=== PATIENT | female | born 2000 | race Caucasian/White ===

== ENCOUNTER 2021-07-14 13:35 | Inpatient (IN) | payer OTHER ==
[2021-07-14] MEDS ORDERED: Ondansetron PF 4 MG/2 ML Vial ONE (14:11)
[2021-07-14] MEDS ORDERED: INSULIN REGULAR IN 0.9 % NACL 100 UNIT/100 ML BAG ONE (14:19)
[2021-07-14 14:30] LABS: #Basophils 0.1 10x3/uL (0.0-0.2); #Eosinphils 0.1 10x3/uL (0.0-0.5); #Monocytes 0.6 10x3/uL (0.0-1.1); #Neutrophils 9.3 10x3/uL (1.5-8.4); %Basophils 0.6 % (0.0-2.0); %Eosinophils 0.7 % (0.0-6.0); %Lymphocytes 18.2 % (18.0-47.0); %Monocytes 4.8 % (0.0-10.0); %Neutrophils 75.1 % (40.0-75.0); Hemoglobin 14.2 g/dL (12.0-15.5); Mean Corpuscular HGB CONC 33.3 g/dL (32.0-36.0); Mean Corpuscular Hemoglobin 29.2 pg (27.0-33.0); Mean Corpuscular Volume 87.7 fl (81.6-98.3); Mean Platelet Volume 10.1 fl (7.4-10.4); Platelet Count 360 10x3/uL (150-450); RBC Distribution Width 12.6 % (11.5-14.5); Red Blood Cell (RBC) Count 4.87 10x6/uL (3.90-5.03); White Blood Cell (WBC) Count 12.4 10x3/uL (3.5-10.5)
[2021-07-14 14:43] LABS: ALT (SGPT) 16 U/L (8-55); AST (SGOT) 15 U/L (5-30); Alkaline Phosphatase 123 U/L (40-100); Anion Gap 26 mmol/L (10-20); BUN (Urea Nitrogen) 22 mg/dL (8.4-21.0); Bilirubin, Total 0.7 mg/dL (0.2-1.2); Calc. Creatinine Clearance 0 mL/min (70-130); Calcium 10.2 mg/dL (7.8-10.44); Carbon Dioxide 16 mmol/L (22-29); Chloride 98 mmol/L (98-107); Globulin 3.2 g/dL (2.4-3.5); Glucose 466 mg/dL (70-105); Phosphorus 4.7 mg/dL (2.3-4.7); Potassium 4.8 mmol/L (3.5-5.1); Protein, Total 8.2 g/dL (6.0-8.3); Sodium 135 mmol/L (136-145)
[2021-07-14 14:44] LABS: Lipase 11 U/L (8-78); Magnesium 2.1 mg/dL (1.7-2.2)
[2021-07-14 15:01] LABS: BHCG - Serum Negative (NEGATIVE); Pregs Control Background? CLEAR/WHITE (CLR/WHITE); Pregs Control Bar Appear? YES (CONTROL BAR)
[2021-07-14] MEDS ORDERED: HYDROcodone/Acetaminophen 5/325 mg Tablet PO PRN (15:31)
[2021-07-14] MEDS ORDERED: Ondansetron PF 4 MG/2 ML Vial IVP PRN (15:31)
[2021-07-14] MEDS ORDERED: Acetaminophen 325 MG TAB PO PRN (15:31)
[2021-07-14] MEDS ORDERED: Senokot S 8.6-50 MG TAB PO PRN (15:31)
[2021-07-14] MEDS ORDERED: Dextrose 5 %-0.45 % NaCl 1,000 ML IV PRN (15:32)
[2021-07-14] MEDS ORDERED: NS 0.9% w/ 20 MEQ KCL 1,000 ML IV PRN ×2 (15:32)
[2021-07-14] MEDS ORDERED: Sodium Chloride 0.9% 1,000 ML IV PRN ×2 (15:32)
[2021-07-14] MEDS ORDERED: D5 1/2 NS w/20 mEq KCL 1,000 ML IV PRN (15:32)
[2021-07-14] MEDS ORDERED: Electrolyte Replacement Protocol 1 EACH IVPB ONE (15:32)
[2021-07-14] MEDS ORDERED: Sodium Chloride 0.9% 1,000 ML IV SCH (15:45)
[2021-07-14] MEDS ORDERED: Electrolyte Replacement Protocol 1 EACH FS PRN (15:45)
[2021-07-14 16:18] LABS: SARS-CoV-2 NAA Rapid Test Not Detected (NotDetected)
[2021-07-14 16:30] LABS: Bilirubin Neg (Negative); Blood, Urine Negative (Negative); Clarity Clear (Clear); Glucose, Urine (Dipstick) >=1000 mg/dL (Negative); Ketone, Urine 150 mg/dL (Negative); Leukocyte Negative (Negative); Nitrite Negative (Negative); Protein, Urine (Dipstick) Negative (Neg-Trace); Specific Gravity, Urine 1.025 (1.002-1.036); Urobilinogen Normal mg/dL (Less than 2)
[2021-07-14] MEDS ORDERED: D5 1/2 NS w/20 mEq KCL 1,000 ML ONE (16:46)
[2021-07-14 16:54] LABS: Anion Gap 16 mmol/L (10-20); BUN (Urea Nitrogen) 20 mg/dL (8.4-21.0); Calc. Creatinine Clearance 0 mL/min (70-130); Calcium 8.2 mg/dL (7.8-10.44); Carbon Dioxide 16 mmol/L (22-29); Chloride 107 mmol/L (98-107); Glucose 194 mg/dL (70-105); Sodium 135 mmol/L (136-145)
[2021-07-14] MEDS ORDERED: INSULIN REGULAR IN 0.9 % NACL 100 UNIT in Premix Bag 1 BAG IVPB SCH (18:30)
[2021-07-14 19:40] VITALS: BP 102/77; TEMP 98.2
[2021-07-14 20:32] LABS: Anion Gap 14 mmol/L (10-20); BUN (Urea Nitrogen) 16 mg/dL (8.4-21.0); Calc. Creatinine Clearance 103 mL/min (70-130); Calcium 8.3 mg/dL (7.8-10.44); Carbon Dioxide 18 mmol/L (22-29); Chloride 108 mmol/L (98-107); Glucose 242 mg/dL (70-105); Potassium 4.1 mmol/L (3.5-5.1); Sodium 136 mmol/L (136-145)
[2021-07-14] MEDS ORDERED: Famotidine/PF 20 mg/2ml Vial SLOW IVP SCH (21:00)
[2021-07-15 00:45] LABS: Anion Gap 10 mmol/L (10-20); BUN (Urea Nitrogen) 11 mg/dL (8.4-21.0); Calc. Creatinine Clearance 113 mL/min (70-130); Calcium 7.8 mg/dL (7.8-10.44); Carbon Dioxide 19 mmol/L (22-29); Chloride 111 mmol/L (98-107); Glucose 158 mg/dL (70-105); Potassium 3.9 mmol/L (3.5-5.1); Sodium 136 mmol/L (136-145)
[2021-07-15 03:57] LABS: #Basophils 0.1 10x3/uL (0.0-0.2); #Eosinphils 0.1 10x3/uL (0.0-0.5); #Monocytes 0.7 10x3/uL (0.0-1.1); #Neutrophils 3.5 10x3/uL (1.5-8.4); %Basophils 0.7 % (0.0-2.0); %Eosinophils 1.5 % (0.0-6.0); %Lymphocytes 48.5 % (18.0-47.0); %Monocytes 8.2 % (0.0-10.0); %Neutrophils 40.9 % (40.0-75.0); Hemoglobin 11.3 g/dL (12.0-15.5); Mean Corpuscular Hemoglobin 29.2 pg (27.0-33.0); Mean Corpuscular Volume 88.4 fl (81.6-98.3); Mean Platelet Volume 10.1 fl (7.4-10.4); Platelet Count 270 10x3/uL (150-450); RBC Distribution Width 12.6 % (11.5-14.5); Red Blood Cell (RBC) Count 3.87 10x6/uL (3.90-5.03); White Blood Cell (WBC) Count 8.5 10x3/uL (3.5-10.5)
[2021-07-15 04:06] LABS: Anion Gap 11 mmol/L (10-20); BUN (Urea Nitrogen) 10 mg/dL (8.4-21.0); Calc. Creatinine Clearance 114 mL/min (70-130); Carbon Dioxide 19 mmol/L (22-29); Chloride 111 mmol/L (98-107); Glucose 96 mg/dL (70-105); Potassium 3.8 mmol/L (3.5-5.1); Sodium 137 mmol/L (136-145)
[2021-07-15] MEDS: 1/2 NS w/KCL 20 mEq 1,000 ML IV SCH ×2 (04:52→15:05)
[2021-07-15] MEDS ORDERED: Lantus 1000 UNITS/10 ML VIAL SC SCH ×2 (05:00→08:15)
[2021-07-15 05:09] VITALS: BMI 23.8
[2021-07-15] MEDS: HumaLOG 300 UNITS/3 ML VIAL SC PRN ×2 (08:12→12:02)
[2021-07-15] MEDS ORDERED: Famotidine 20 MG TAB PO SCH (09:00)
[2021-07-15] MEDS ORDERED: [UNRECOGNIZED DRUG - OTHER] FS SCH (09:15)
[2021-07-15 12:50] LABS: Hemoglobin A1c 9.1 % (4.0-6.0)
[2021-07-15] MEDS ORDERED: FLU VACC QS2021-22(6MOS UP)/PF 60 MCG/0.5 ML SYRINGE IM ONE (18:45)
== END 2021-07-15 15:40 | disposition home or self-care (01) | DRG 919 ==
LOC: CSHERS 13:35 → CSHIMCU 17:11
PROVIDERS: ADMIT Family Medicine; ATTEND Family Medicine
DX: T85.614A Breakdown (mechanical) of insulin pump, initial encounter (principal); E10.10 Type 1 diabetes mellitus with ketoacidosis without coma; N17.9 Acute kidney failure, unspecified; Z20.822 Contact with and (suspected) exposure to COVID-19; E86.9 Volume depletion, unspecified; Y84.8 Other medical procedures as the cause of abnormal reaction of the patient, or of later complication, without mention of misadventure at the time of the procedure
CPT/HCPCS: 36415; 36416; 71045; 80048; 80053; 81003; 82010; 83036; 83690; 83735; 84100; 84484; 84703; 85025; 93005; 96365; 96366; 96375; 96376; J1815; J2405; J3480; S0028; U0002